=== PATIENT | female | born 1995 | race Two or more races ===

== ENCOUNTER 2017-03-22 20:59 | Emergency (ER) | payer SELFPAY ==
[~2017-03-22] VITALS: Ht 162.6 cm; Wt 61.2 kg
[2017-03-22 21:04] VITALS: BP 139/86
== END 2017-03-23 02:35 | disposition left against medical advice (07) ==
LOC: ER 21:05
DX: R51 Headache (principal); V49.9XXA Car occupant (driver) (passenger) injured in unspecified traffic accident, initial encounter; Y93.89 Activity, other specified; Y99.8 Other external cause status; Y92.89 Other specified places as the place of occurrence of the external cause; Z53.21 Procedure and treatment not carried out due to patient leaving prior to being seen by health care provider